=== PATIENT | female | born 1980 | race Caucasian/White ===

== ENCOUNTER 2023-03-31 12:10 | Outpatient (REF) | payer MEDICAID, SELFPAY ==
--- NOTE | ~2023-03-31 | MM_ITS ---
EXAMINATION: MM SCREENING DIGITAL BREAST TOMOSYNTHESIS, BILATERAL CLINICAL INFORMATION: Screening. Asymptomatic. COMPARISON: Mammography: There are no prior mammograms available for comparison. TECHNIQUE: Digital breast tomosynthesis is performed in both the craniocaudal and mediolateral oblique views along with computer-aided detection (CAD). Synthesized 2D images are generated from the tomosynthesis. FINDINGS: There are scattered areas of fibroglandular density (ACR BI-RADS breast composition Category b). There are no significant masses, abnormal calcifications, or other abnormalities. MM/MM tomosynthesis screening BI IMPRESSION: No mammographic evidence of malignancy. ASSESSMENT: BI-RADS BI-RADS 1 - Negative RECOMMENDATION: Routine annual mammography screening. 1 year F/U This examination should not preclude the clinical evaluation of a suspicious palpable abnormality. This patient's information was entered into a reminder system with a target due date for their next mammogram.
== END 2023-03-31 12:11 | disposition home or self-care (01) ==
LOC: HO.MAMMO 12:10
PROVIDERS: PCP Registered Nurse; Visit Provider Registered Nurse
DX: Z12.31 Encounter for screening mammogram for malignant neoplasm of breast (principal)
CPT/HCPCS: 77063; 77067

== ENCOUNTER → 2023-03-31 12:15 | Outpatient (BNV) | payer MEDICAID, SELFPAY | PROVIDERS: PCP Registered Nurse; Visit Provider Radiology Diagnostic Radiology | DX: Z12.31 Encounter for screening mammogram for malignant neoplasm of breast (principal) | CPT/HCPCS: 77063; 77067 ==

== ENCOUNTER 2023-04-12 14:18 | Outpatient (REF) | payer MEDICAID, SELFPAY ==
[2023-04-12 16:30] LABS: Estimated Average Glucose 111 mg/dL; Hemoglobin A1c % 5.5 % (<6.0)
[2023-04-12 16:38] LABS: Alanine Aminotransferase 21 U/L (0-31); Alkaline Phosphatase 88 U/L (39-117); Anion Gap 13 (12-20); Aspartate Amino Transferase 14 U/L (5-31); Bilirubin Total 0.2 mg/dL (0.0-1.0); Blood Urea Nitrogen 28 mg/dL (9-16); Calcium 10.9 mg/dL (8.4-10.2); Carbon Dioxide 24 mmol/L (22-29); Chloride 106 mmol/L (96-108); Estimated Glomerular Filt Rate 43; Glucose Random 91 mg/dL (60-115); Potassium 4.6 mmol/L (3.3-5.1); Sodium 138 mmol/L (135-145); Total Protein 7.3 g/dL (6.5-8.0)
[2023-04-13 12:57] LABS: HBS Num1 35.34 mIU/mL (0-7.99); HBsAGNum1 0.27 S/CO (0.00-0.99); Hepatitis A Antibody IgM 0.29 Index (0-0.79); Hepatitis B Core Antibody Nonreactive (Nonreactive); Hepatitis B Surface Antigen Negative (Negative); ~HepC Num1 0.12 S/CO (0.00-0.79); ~Hepatitis A Antibody IgM Nonreactive (Nonreactive); ~Hepatitis B Surface Antibody REACTIVE (Nonreactive); ~Hepatitis C Antibody Nonreactive (Nonreactive)
== END 2023-04-12 14:19 | disposition home or self-care (01) ==
LOC: HO.HHCL 14:18
PROVIDERS: Visit Provider Registered Nurse
DX: Z00.00 Encounter for general adult medical examination without abnormal findings (principal); R73.03 Prediabetes; E28.2 Polycystic ovarian syndrome
CPT/HCPCS: 36415; 80053; 83036; 86704; 86706; 86709; 86803; 87340

== ENCOUNTER 2023-04-20 14:58 | Outpatient (REF) | payer MEDICAID, SELFPAY ==
[2023-04-20 16:53] LABS: Phosphorus 2.3 mg/dL (2.7-4.5)
[2023-04-20 16:56] LABS: Parathyroid Hormone Intact 234.4 pg/mL (8.7-77.1)
[2023-04-20 17:10] LABS: Vitamin D 25-OH Total 36.6 ng/mL (>30)
== END 2023-04-20 14:59 | disposition home or self-care (01) ==
LOC: HO.HHCL 14:58
PROVIDERS: Visit Provider Registered Nurse
DX: E83.52 Hypercalcemia (principal)
CPT/HCPCS: 36415; 82306; 83970; 84100

== ENCOUNTER 2024-01-04 12:36 | Outpatient (REF) | payer MEDICAID, SELFPAY ==
[2024-01-04 13:29] LABS: Appearance Urine Clear; Color Urine Yellow; Glucose Urine UA Negative (Negative); Leukocyte Esterase Urine Negative (Negative); Nitrite Urine Negative (Negative); PH 6.5 (5.0-9.0); Specific Gravity - Urine 1.015 (1.005-1.025); UMIC TRIGGER UA YES; Urine Blood Trace (Negative); Urine Ketones Negative (Negative); Urine Protein 30 (1+) mg/dL (Neg-Trace)
[2024-01-04 13:31] LABS: MANUAL DIFF FLAG NO
[2024-01-04 13:34] LABS: Basophils Percent Auto 0.4 % (0-2); Eosinophils Absolute Auto 0.3 X10*3/uL (0.0-0.4); Eosinophils Percent Auto 3.3 % (0-4); Hematocrit 43.9 % (37.0-47.0); Hemoglobin 14.6 g/dl (12.0-16.0); Imm Gran Abs Auto 0.04 X10*3/uL (0.00-0.03); Imm Gran Pct Auto 0.4 % (0.0-0.4); Lymphocytes Absolute Auto 1.7 X10*3/uL (1.2-4.9); Lymphocytes Percent Auto 16.7 % (20-40); Mean Corpuscular HGB Conc 33.3 g/dl (31.0-35.0); Mean Corpuscular Hemoglobin 27.7 pg (27.0-33.0); Mean Corpuscular Volume 83.1 fL (80.0-98.0); Mean Platelet Volume 10.2 fL (9.4-12.3); Monocytes Absolute Auto 0.7 X10*3/uL (0.1-1.2); Monocytes Percent Auto 6.9 % (2-11); Neutrophils Absolute Auto 7.4 x10*3/uL (2.0-8.3); Neutrophils Percent Auto 72.3 % (45-73); Platelet Count 271 X10*3/uL (160-400); Red Blood Count 5.28 X10*6/uL (4.20-5.50); Red Cell Distribution Width 13.5 % (11.0-16.0); White Blood Count 10.2 X10*3/uL (4.8-10.8)
[2024-01-04 13:36] LABS: Bacteria Urine Trace (None Seen); Hyaline Casts Urine 0-2 /LPF (0-2); WBC Urine 0-5 /HPF (0-5)
[2024-01-04 14:06] LABS: Creatinine Urine 103.47 mg/dL; Protein/Creatinine Ratio, Ur 0.36 (<0.2); Total Protein Urine Random 37 mg/dL (<12)
[2024-01-04 14:13] LABS: Parathyroid Hormone Intact 245.9 pg/mL (8.7-77.1)
[2024-01-04 14:20] LABS: Alanine Aminotransferase 34 U/L (0-31); Albumin Level 4.1 g/dL (3.5-5.0); Alkaline Phosphatase 87 U/L (39-117); Anion Gap 11 (12-20); Aspartate Amino Transferase 16 U/L (5-31); Bilirubin Total 0.3 mg/dL (0.0-1.0); Blood Urea Nitrogen 24 mg/dL (9-16); Calcium 11.2 mg/dL (8.4-10.2); Carbon Dioxide 24 mmol/L (22-29); Chloride 107 mmol/L (96-108); Estimated Glomerular Filt Rate 45; Glucose Random 122 mg/dL (60-115); Potassium 4.6 mmol/L (3.3-5.1); Sodium 137 mmol/L (135-145); Total Protein 7.3 g/dL (6.5-8.0)
[2024-01-04 14:28] LABS: Vitamin D 25-OH Total 40.7 ng/mL (>30)
[2024-01-04 14:37] LABS: Uric Acid 9.1 mg/dL (2.4-5.7)
== END 2024-01-04 12:37 | disposition home or self-care (01) ==
LOC: HO.HHCL 12:36
PROVIDERS: Visit Provider Internal Medicine Nephrology
DX: Z13.89 Encounter for screening for other disorder (principal)
CPT/HCPCS: 36415; 80053; 81001; 82306; 82570; 83735; 83970; 84100; 84156; 84550; 85025

== ENCOUNTER 2024-02-14 11:58 | Outpatient (REF) | payer MEDICAID, SELFPAY ==
[2024-02-14 13:44] LABS: Estimated Average Glucose 126 mg/dL; Hemoglobin A1C 151.9536 umol/L; Total Hemoglobin (HGBA1C) 3623.4112 umol/L
[2024-02-14 14:05] LABS: Cholesterol 161 mg/dL (<200); HDL Cholesterol 48 mg/dL (>40); LDL Cholesterol Calculated 99 mg/dL (<100); Triglycerides 72 mg/dL (<150)
== END 2024-02-14 11:59 | disposition home or self-care (01) ==
LOC: HO.HHCL 11:58
PROVIDERS: Visit Provider Registered Nurse
DX: E66.01 Morbid (severe) obesity due to excess calories (principal); Z68.43 Body mass index [BMI] 50.0-59.9, adult
CPT/HCPCS: 36415; 80061; 83036

== ENCOUNTER 2024-03-06 09:51 | Outpatient (REF) | payer MEDICAID, SELFPAY ==
--- NOTE | ~2024-03-06 | XR_ITS ---
EXAMINATION: XR SHOULDER, LEFT CLINICAL INFORMATION: pain over deltoid , pain over deltoid patient states pain for 2 weeks COMPARISON: None available. TECHNIQUE: 5 views of the left shoulder. FINDINGS: Glenohumeral and acromioclavicular alignment maintained. Limited visualization due to body habitus. Joint spaces are preserved. XR/XR shoulder LT min 2V IMPRESSION: Glenohumeral and acromioclavicular alignment maintained. Limited visualization due to body habitus. This study was presented today to March 06, 2024 for interpretation. Stat results provided at this time as requested by referring provider. Electronically signed by: Kelly Quinteros MD 03/06/2024 12:35 PM [facility]
== END 2024-03-06 09:52 | disposition home or self-care (01) ==
LOC: HO.HHCX 09:51
PROVIDERS: Visit Provider Family Medicine
DX: M25.512 Pain in left shoulder (principal)
CPT/HCPCS: 73030

== ENCOUNTER 2024-06-05 11:07 | Outpatient (REF) | payer MEDICAID, SELFPAY ==
[2024-06-05 13:44] LABS: Alanine Aminotransferase 30 U/L (0-31); Alkaline Phosphatase 91 U/L (39-117); Aspartate Amino Transferase 26 U/L (5-31); Bilirubin Direct 0.2 mg/dL (0.0-0.5); Bilirubin Total 0.4 mg/dL (0.0-1.0); Magnesium 1.8 mg/dL (1.6-2.6); Total Protein 7.6 g/dL (6.5-8.0)
[2024-06-05 14:05] LABS: Parathyroid Hormone Intact 196.8 pg/mL (8.7-77.1)
== END 2024-06-05 11:08 | disposition home or self-care (01) ==
LOC: HO.HHCL 11:07
PROVIDERS: Visit Provider Student in an Organized Health Care Education/Training Program
DX: E21.0 Primary hyperparathyroidism (principal)
CPT/HCPCS: 36415; 80076; 82330; 83735; 83970

== ENCOUNTER 2024-09-20 13:31 | Outpatient (REF) | payer MEDICAID, SELFPAY ==
--- OUTSIDE RECORDS SUMMARY | 2024-09-20 14:08 | XMS_ITS | Clinical Summary ---
Author Organization [employer] Address [address] [facility] [address] [place] [address] Care Team Providers Care Butter Liquefier Name Role Phone [facility] Primary Care Provider [phone] Allergies No known active allergies Medications amLODIPine (Norvasc) 2.5 MG tablet 12/08/19 22 Active cholecalciferol (Vitamin D-3) 50 MCG (1999) capsule Take by mouth in the morning. 03/08/20 22 Active lisinopril 40 MG tablet Take 40 mg by mouth in the morning. 03/08/20 22 Active chlorhexidine (Peridex) 0.12 % solution USE 15 ML IN THE MOUTH OR THROAT IF NEEDED FOR WOUND CARE FOR UP TO 14 DAYS *SPIT, DO NOT SWALLOW 473 mL 05/20/19 24 Active triamcinolone (Kenalog) 0.1 % ointmentIndicati ons:Rash and nonspecific skin eruption Apply topically 2 times daily. For 2 weeks 15 g 01/17/20 24 Active albuterol 108 (90 Base) MCG/ACT inhalerIndicatio ns:Mild intermittent reactive airway disease without complication Inhale 2 puffs every 6 (six) hours if needed for wheezing. 18 g 11 01/17/20 24 025 Active Spacer/Aero-Hold Chamber Mask miscIndications: Mild intermittent reactive airway disease without complication Use as directed with inhaler 1 each 01/17/20 24 Active acetaminophen (Tylenol 8 Hour) 650 MG ER tabletIndication s:Acute pain of left shoulder Take 1 tablet (650 mg) by mouth every 8 (eight) hours if needed for mild pain. 30 tablet 1 03/06/20 24 Active Lidocaine 5 % creamIndications :Acute pain of left shoulder Apply topically bid 30 g 3 03/06/20 24 Active Tirzepatide-Weig ht Management (Zepbound) 2.5 MG/0.5ML solution auto-injectorInd ications:Class 3 severe obesity due to excess calories with serious comorbidity and body mass index (BMI) of 50.0 to 59.9 in adult,Pre-diabet es,Metabolic syndrome Inject 0.5 mL (2.5 mg) under the skin 1 (one) time per week. 2 mL 05/30/19 25 026 Active Tirzepatide-Weig ht Management (Zepbound) 5 MG/0.5ML solution auto-injectorInd ications:Class 3 severe obesity due to excess calories with serious comorbidity and body mass index (BMI) of 50.0 to 59.9 in adult Inject 0.5 mL (5 mg) under the skin 1 (one) time per week. 2 mL 06/27/19 25 026 Active Alcohol Swabs (B-D SINGLE USE SWABS REGULAR) padsIndications: Overweight USE 1 PAD ONCE A WEEK 100 each 07/06/19 25 Active cyclobenzaprine (Flexeril) 10 MG tabletIndication s:Acute pain of left shoulder TAKE 1 TABLET AT BEDTIME NEEDED FOR PAIN OF MUSCLES, DO NOT DRIVE WITH MEDICAION 30 tablet 09/05/19 25 Active cyclobenzaprine (Flexeril) 10 MG tabletIndication s:Acute pain of left shoulder TAKE 1 TABLET AT BEDTIME NEEDED FOR PAIN OF MUSCLES, DO NOT DRIVE WITH MEDICAION 30 tablet 08/04/19 25 025 Discontinued Active Problems Problem Noted Date Diagnosed Date Acute pain of left shoulder 03/06/2024 Overview (03/06/2024): Likely musculoskeletal. Will call for ortho referral is symptoms do not improve. - Prescribed acetaminophen (Tylenol 8 Hour) 650 MG ER tablet 03/06/24 - Prescribed cyclobenzaprine (Flexeril) 10 MG tablet 03/06/24 - Prescribed Lidocaine 5 % cream 03/06/24 - Referral to Physical Therapy 03/06/24 - Ordered XR Shoulder 2+ Views Left 03/16/24 - ER precautions discussed. - Seek medical attention for worsening symptoms. Assessment & Plan (03/06/2024 9:51 AM EST): Likely musculoskeletal. Will call for ortho referral is symptoms do not improve. - Prescribed acetaminophen (Tylenol 8 Hour) 650 MG ER tablet 03/06/24 - Prescribed cyclobenzaprine (Flexeril) 10 MG ulfysb12/16/24 - Prescribed Lidocaine 5 % cream 03/06/24 - Referral to Physical Mltpuvq77/16/24 - Ordered XR Shoulder 2+ Views Left 03/16/24 - ER precautions discussed. - Seek medical attention for worsening symptoms. Metabolic syndrome 01/17/2024 Healthcare maintenance 12/07/2023 Overview (01/17/2024): Mammo: 03/2023 Bi-rads 1 Pap: Through Photos I Like critical access hospital records. Sometime in 2022 NO hx of abnormal. C-scope: Routine age 45 BMD: Routine Primary hyperparathyroidism 04/23/2023 Pre-diabetes 02/17/2023 Overview (02/17/2023): A1c 5.7% 07/01/2022. Pt reports + family hx of DM (mom and sister). Has upcoming appointment with [facility] nutrition IUD contraception 09/24/2020 Overweight 09/24/2020 Blood in urine 07/19/2020 Chronic kidney disease, stage 2 (mild) Overview (02/17/2023): Followed by nephrology in [place] monitored q. 6 months Edema 07/19/2020 Proteinuria 07/19/2020 Essential hypertension 09/20/2015 Overview (02/17/2023): Lisinopril 40mg Amlodipine 5mg Maintenance: BMP: Pending Lipid Panel: 06/2022 - Aerobic exercise to reduce BP. Initial goal of 30 min walk 3-5x/week. Increase as tolerated. - low-sodium diet (goal: <2g/day) and heart healthy diet such as DASH to reduce BP and prevent ASCVD. - Home BP monitoring 1-2 x day with goal of <140/90. - Seek immediate medical attention for chest pain, palpitations, SOB, syncope, or sudden changes in mental status. - Do not change or discontinue current prescriptions without first consulting health care provider Assessment & Plan (02/17/2023 3:01 PM EST): Well controlled Continue current regimen Repeat BMP today-mild calcium elevation 06/2022. Likely dehydration. IgA nephropathy 09/20/2015 Irritable bowel syndrome 09/20/2015 PCOS (polycystic ovarian syndrome) 09/20/2015 Overview (02/17/2023): Metformin Assessment & Plan (02/17/2023 3:01 PM EST): - Pt will trial metformin 500mg xr once daily WITH food Vitamin D deficiency 09/20/2015 Encounters Date Type Department Care Team Description 09/18/2024 Patient Outreach [facility] MEDIC[facility] [address] [place] [address] Ceci Arias FNP Pre-visit Planning (SDOH screening completed on 05/29/2024) 2024 Refill [facility] [address] [place] [address] Name, MD Asaf Acute pain of left shoulder 08/24/2024 Telephone [facility] [address] [place] [address] [phone] Krystina Rodriguez rs [facility] 08/07/2024 Telephone [facility] [address] [place] [address] [phone] Krystina Rodriguez RS SRP 08/03/2024 Refill [facility] [address] [place] [address] Ceci Arias FNP Acute pain of left shoulder 07/31/2024 Telephone [facility] [address] [place] [address] Ceci Arias FNP Medication Question 07/28/2024 Patient Outreach [facility] [address] [place] [address] Ceci Arias FNP Pre-visit Planning (SDOH unable to reach LVM ) 07/04/2024 Refill [facility] MED[facility] [address] [place] [address] Ceci Arias FNP Acute pain of left shoulder; Overweight 07/04/2024 Telephone [facility] MEDICINE [address] [place] [address] Ceci Arias DARÍO Prior Authorization ( SHERIF Request: Zesoo) 06/26/2024 11:15 AM EDT Telemedicine [facility] [address] [facility] [place] [address] Ceci Arias DARÍO Class 3 severe obesity due to excess calories with serious comorbidity and body mass index (BMI) of 50.0 to 59.9 in adult (Primary Dx) 06/26/2024 Travel from Last 3 Months Immunizations Immunization Administration Dates Next Due DTP 04/25/1982, 2,02/04/1981,1980 DTaP 06/09/1985,04/25/1982 Hep B, adult 05/30/1996,10/14/1995,09/15/1995 Influenza injectable quadriv alent preservative free 02/17/2023,01/05/2020 Influenza, IIV3, injectable 01/09/2014 Influenza, seasonal, injecta ble, preservative free 01/17/2024 MMR 02/01/1990,01/13/1982 OPV, Trivalent 06/04/1982, 2,02/04/1981,1980 PPD Test 05/11/2017 TD (adult), 2 Lf tetanus tox oid, preservative free, adsorbed 02/17/2023,11/04/1994 Tdap 10/14/2011 Social History Tobacco Use Types Packs/Day Years Used Date Smoking Tobacco: Former Cigarettes Passive Smoke Exposure: Past Smokeless Tobacco: Never Alcohol Use Standard Drinks/Week Comments Never 0 (1 standard drink = 0.6 oz pur e alcohol) Depression Answer Date Recorded Patient Health Questionnaire-9 Score 0 05/29/2024 Patient Health Questionnaire-9 Score 0 05/29/2024 Last PHQ-9: Questionnaire Data Not on file 0 05/29/2024 Housing Stability Answer Date Recorded What is your housing situation today? I have terrie lin 01/06/[address] you li ve. Do you have problems with any of the following? None of the above 01/06/2023 Food Insecurity Answer Date Recorded Within the past 12 months, y ou worried that your food would run out before you got money to buy more: Never True 01/06/2023 Within the past 12 months,th e food you bought just didn't last and you didn't have enough money to get more: Never True Transportation Answer Date Recorded In the past 12 months, has l ack of transportation kept you from medical appts, meetings, work or from getting things needed for daily living? No 01/06/2023 Utilities Answer Date Recorded In the past 12 months, has t he electric, gas, oil or water company threatened to shut off services in your home? No 01/06/2023 Depression Answer Date Recorded Patient Health Questionnaire-2 Score 0 05/29/2024 Internet Access Answer Date Recorded Internet Access Q1 Yes 01/10/2024 Internet Access Q2 Not on file 01/10/2024 Comments Unknown Intention Date Recorded No desire to become (finding) 0 06/26/2024 Sex and Gender Information Value Date Recorded Sex Assigned at Female 01/19/2022 10:15 AM EDT Legal Sex Female 10:15 AM EDT Gender Identity Female 01/19/2022 10:15 AM EDT Sexual Orientation Straight 01/19/2022 10 :15 AM EDT Last Filed Vital Signs Vital Sign Reading Time Taken Comments Blood Pressure 146/84 06/20/2024 10:09 AM EDT Pulse 87 06/20/2024 10:09 AM EDT Temperature 36.3 C (97.4 F) 05/29/2024 10:29 AM EDT Respiratory Rate 20 05/29/2024 10:29 AM EDT Oxygen Saturation 100% 05/29/2024 10:29 AM EDT Inhaled Oxygen Concentration - - Weight 122 kg (269 lb 6.4 oz) 05/29/2024 10:29 A M EDT Height 149.9 cm (4' 11 ) 05/29/2024 10:29 AM EDT Body Mass Index 54.41 05/29/2024 10:29 AM EDT Plan of Treatment Upcoming Encounters Date Type Department Care Team (Late st Contact Info) Description 09/27/2024 10:15 AM EDT Office Visit [facility] [address], [place] [phone] [facility] [address] [place] [address] 11/09/2024 9:00 AM EDT Office Visit [facility] [address] [place] [phone] Krystina Rodriguez [address] [place] [address] [phone] 11/16/2024 9:00 AM EDT Office Visit [facility] [address] [place] [address] [phone] Jennifer, [address] [phone] 12/25/2024 10:00 AM EDT Office Visit [facility] [address] [place] [address] [phone] Jennifer, [address] [phone] Health Maintenance Due Date Last Done Comments Disability Screening 1980 Alcohol/Substance Use Screening 1992 Pneumococcal Vaccine: Pediatrics (0 to 5 Years) and At-Risk Patients (6 to 49) Years (1 of 2 - PCV) 09/05/1999 Dental X-Ray: Full Mouth 02/01/2018 01/31/2015, 11/2007 Dental X-Ray: Bitewings 09/25/2022 09/25/19, 08/21/2016, 12/07/2014, Additional history exists COVID-19 Vaccine ( season) 2023 01/28/2021, 01/07/2021 Influenza Vaccine (#1) 2024 , 02/17/2023, 01/05/2020, Additional history exists Dental Oral Exam 12/21/2024 06/20/2024, 09/2022, 09/24/2021, Additional history exists Dental Prophylaxis 12/21/2024 06/20/2024, 0 09/22/2023, 09/24/2021, Additional history exists Diabetes: Hemoglobin A1C 02/13/2025 024, 04/12/2023, 07/01/2022, Additional history exists Mammogram 03/31/2025 03/31/2023, 03/31/2023 Depression Screening 05/29/2025 05/29/2024, 05/30/19 SDOH Screening 05/29/2025 05/29/2024 Family Planning (PISQ) 06/28/2025 06/28/2024 Tobacco Screening 06/28/2025 06/28/2024 Pap Smear 04/25/2027 04/25/2024 Lipid Panel 02/13/2029 02/14/2024, 06/20, 03/14/2020 Cervical Cancer Screening 04/25/2029 HPV/Cotest 04/25/2029 04/25/2024 Zoster Vaccines (1 of 2) 2030 DTaP/Tdap/Td Vaccines (8 - Td or Tdap) 02/17/2033 02/17/2023, 10/14/2011, 11/04/1994, Additional history exists RSV Patients and Patients Aged 60 years or older (1 - 1-dose 75+ series) 09/05/2055 IPV Vaccines Completed 06/04/1982, 03/23, 02/04/1981, Additional history exists Hepatitis B Vaccines Completed 12/21/2014, 05/30/1996, 10/14/1995, Additional history exists HIV Screening Completed 03/14/2020 Hepatitis C Screening Completed 04/12/2023 HIB Vaccines Aged Out No longer eligi ble based on patient's age to complete this topic HPV Vaccines Aged Out No longer eligi ble based on patient's age to complete this topic Hepatitis A Vaccines Aged Out No long er eligible based on patient's age to complete this topic Meningococcal B Vaccine Aged Out No l onger eligible based on patient's age to complete this topic Meningococcal Vaccine Aged Out No william constantino eligible based on patient's age to complete this topic RSV under 20 months Aged Out No longe r eligible based on patient's age to complete this topic Rotavirus Vaccines Aged Out No longer eligible based on patient's age to complete this topic Procedures Procedure Name Priority Date/Time Associated Diagnosis Comments PROPHYLAXIS - ADULT Routine 06/20/2024 1 0:00 AM EDT PERIODIC ORAL EVALUATION - ESTABLISHED PATIENT Routine 06/20/2024 10:00 AM EDT HM PAP/HPV Routine 04/25/2024 HEMOGLOBIN A1C Routine 02/14/2024 12:00 PM EST Class 3 severe obesity due to excess calories with serious comorbidity and body mass index (BMI) of 50.0 to 59.9 in adult (CMS/HCC) LIPID PANEL, STANDARD Routine 02/14/2024 12:00 PM EST Class 3 severe obesity due to excess calories with serious comorbidity and body mass index (BMI) of 50.0 to 59.9 in adult (CMS/HCC) HEPATITIS PANEL, GENERAL Routine 04/12/2023 2:18 PM EST Healthcare maintenance BI MAMMOGRAM SCREENING TOMOSYNTHESIS BILATERAL Routine 03/31/2023 12:30 PM EST Encounter for screening mammogram for breast cancer BITEWINGS - 4 RADIOGRAPHIC IMAGES Routine 09/24/2021 12:00 AM EDT HIV 1/2 ANTIGEN/ANTIBODY, FOURTH GENERATION W/RFL Routine 03/14/2020 10:40 AM EST PANORAMIC RADIOGRAPHIC IMAGE Routine 01/31/2015 12:00 AM EST from Last 3 Months or Most Recently Relevant to Health Maintenance Results * HM PAP/HPV (04/25/2024) Pap Smear 1. NILM 1. NILM Comment:Completed Ninfa 2024. NIL HPV neg. Repeat 04/2029. HPV Not Detected Undetected, Indeterminat e, Quantitative , Not Detected Comment:Completed Ninfa 2024. NIL HPV neg. Repeat 04/2029. us Historical Provider HEALTH MAINTENANCE Final Result * Hemoglobin A1c (02/14/2024 12:00 PM EST) Hemoglobin A1c 6.0 <6.0 % [facility] Comment:Hemoglobin A1C Refer ence Range Adults: 4.8 - 6.0 % Non diabetic: < 6.0 % Goal: < 7.0 %Additional Action Suggested: > 8.0 %Note: Hemoglobin A1c results are invalid for patients with abnormal amounts of HbF. Blood transfusions may impact the HbA1c concentration in the patient sample. Estimated Average Glucose 126 mg/dL [facility] Comment:eAG = Estimated ave rage glucose which is %A1C expressed asaverage glucose, using the formula of the X7S-HiycymxFxkqtsi Glucose study (ADAG), Diabetes Care, Vol.31,#8,Oct. 2007 Blood Venous blood specimen / Unknown 02/14/2024 12:00 PM EST 02/14/2024 1:10 PM EST [facility] LAB BLOOD ORDERABLES Final Re sult Performing Organization Address City/[facility]/ZIP Co de Phone Number [facility] [address], [place] [phone] * Lipid Panel, Standard (02/14/2024 12:00 PM EST) Triglycerides 72 <150 mg/dL [facility] Comment:Desirable Triglyceri de: less than 150 mg/dLBorderline High Triglyceride 150-199 mg/dLHigh Triglyceride: 200-499 mg/dLVery High Triglyceride: greater than or equal to 5OO mg/dL Cholesterol 161 <200 mg/dL [facility] Comment:Desirable Cholestero l: less than 200 mg/dLBorderline High Cholesterol: 200-239 mg/dLHigh Cholesterol: greater than 239 mg/dL LDL Cholesterol Calculated 99 <100 mg/dL [facility] Comment:Desirable LDL: less than 100 mg/dLNear Optimal/Above Optimal LDL: 110- 129 mg/dLBorderline High LDL: 130-159 mg/dLHigh LDL: 160-189 mg/dLVery High LDL: greater than or equal to 190 mg/dL HDL Cholesterol 48 >40 mg/dL [facility] Comment:Desirable HDL: great er than 40 mg/dL Note: This HDL assay may give artificially low results in patients with liver disease. Blood Venous blood specimen / Unknown 02/14/2024 12:00 PM EST 02/14/2024 1:10 PM EST [facility] LAB BLOOD ORDERABLES Final Re sult [facility] [address] [place] [address] [phone] * Hepatitis A,B,C Profile (04/12/2023 2:18 PM EST) Hepatitis A IgM Nonreactive Nonreactive [facility] Comment:IgM antibodies to ALEMAN V not detected; does not exclude earlyacute or recovered HAV infection. ~Hepatitis B Surface Antibody REACTIVE Nonreactive [facility] Comment:REACTIVE: > 11.99 mI U/mL Hepatitis B Core Antibody Nonreactive Nonreactive [facility] Hepatitis C Antibody Nonreactive Nonreactive [facility] Comment:Antibodies to HCV no t detected; does not exclude early acuteHCV infection. Hepatitis B Surface Ag Negative Negative [facility] Blood Venous blood specimen / Unknown 04/12/2023 2:18 PM EST 04/12/2023 4:13 PM EST Ceci Arias CREDIT OFFICE MANAGER LAB BLOOD ORDERABLES Final Re sult [facility] [address] [place] [address] [phone] * BI Mammogram Screening Tomosynthesis Bilateral (03/31/2023 12:30 PM EST) Anatomical Region Laterality Modality Breast Bilateral Mammography 03/31/2023 12:3 0 PM EST Narrative 04/21/2023 11:15 AM EST [facility] [address] [place] [address] Mammography Report Signed Patient: Princess Redman MR#: [id number] : 1980 Acct:[id number] Age/Sex: 42 / F ADM Date: 03/31/23 Loc: [facility] Attending Dr: Ceci CHANEL Ordering Physician: Ceci Arias Results: 1Nega tive Date of Service: 03/31/23 Follow Up: 1 Year From Orig inal Mammogram Procedure(s): MM tomosynthesis screening BI Accession Number(s): [id number] cc: Hugo,Ceci CREDIT OFFICE MANAGER EXAMINATION: MM SCREENING DIGITAL BREAST TOMOSYNTHESIS, BILATERAL CLINICAL INFORMATION: Screening. Asymptomatic. COMPARISON: Mammography: There are no prior mammograms available for comparison. TECHNIQUE: Digital breast tomosynthesis is performed in both the craniocaudal and mediolateral oblique views along with computer-aided detection (CAD). Synthesized 2D images are generated from the tomosynthesis. FINDINGS: There are scattered areas of fibroglandular density (ACR BI-RADS breast composition Category b). There are no significant masses, abnormal calcifications, or other abnormalities. MM/MM tomosynthesis screening BI IMPRESSION: No mammographic evidence of malignancy. ASSESSMENT: BI-RADS BI-RADS 1 - Negative RECOMMENDATION: Routine annual mammography screening. 1 year F/U This examination should not preclude the clinical evaluation of a suspicious palpable abnormality. This patient's information was entered into a reminder system with a target due date for their next mammogram. Dictated By: Alyssia Cunha MD Signed By: <Electronically signed by Alyssia Cunha MD in OV> 04/21/23 1111 DD/ 1230 TD/TT: Photographic Equipment Inspector: Procedure Note Donotuseinterpreter, Image - 04/21/2023 [facility] [address] [place] [address] Mammography Report Signed Patient: Princess Redman LMR#: [id number] : 1980Acct:[id number] Age/Sex: 42 / FADM Date: 03/31/23 Loc: [facility] Attending Dr: Ceci Arias CREDIT OFFICE MANAGER Ordering Physician: Ceci Arias FNPResults: 1Nega tive Date of Service: 03/31/23Follow Up: 1 Year From Orig inal Mammogram Procedure(s): MM tomosynthesis screening BI Accession Number(s): [id number] cc: Ceci Arias CREDIT OFFICE MANAGER EXAMINATION: MM SCREENING DIGITAL BREAST TOMOSYNTHESIS, BILATERAL CLINICAL INFORMATION: Screening. Asymptomatic. COMPARISON: Mammography: There are no prior mammograms available for comparison. TECHNIQUE: Digital breast tomosynthesis is performed in both the craniocaudal and mediolateral oblique views along with computer-aided detection (CAD). Synthesized 2D images are generated from the tomosynthesis. FINDINGS: There are scattered areas of fibroglandular density (ACR BI-RADS breast composition Category b). There are no significant masses, abnormal calcifications, or other abnormalities. MM/MM tomosynthesis screening BI IMPRESSION: No mammographic evidence of malignancy. ASSESSMENT: BI-RADS BI-RADS 1 - Negative RECOMMENDATION: Routine annual mammography screening. 1 year F/U This examination should not preclude the clinical evaluation of a suspicious palpable abnormality. This patient's information was entered into a reminder system with a target due date for their next mammogram. Dictated By: Alyssia Cunha MD Signed By: <Electronically signed by Alyssia Cunha MD in OV> 04/21/23 1111 DD/ 1230 TD/TT: Photographic Equipment Inspector: [facility] CREDIT OFFICE MANAGER IMG BI PROCEDURES Final Resul t * HIV 1/2 ANTIGEN/ANTIBODY,FOURTH GENERATION W/RFL (03/14/2020 10:40 AM EST) HIV-1/2 ANTIGEN AND ANTIBODIES, 4TH GENERATION W/ REFLEX NON-REACT VERO NON-REACT VERO [facility] Comment: HIV-1 antigen and HIV-1/HIV-2 antibodies were not detected. There is no laboratory evidence of HIV infection. PLEASE NOTE: This information has been disclosed to you from records whose confidentiality may be protected by state law. If your state requires such protection, then the state law prohibits you from making any further disclosure of the information without the specific written consent of the person to whom it pertains, or as otherwise permitted by law. A general authorization for the release of medical or other information is NOT sufficient for this purpose. For additional information please refer to http://education.Hellotravel.SMX/faq/DGI880 (This link is being provided for informational/ educational purposes only.) The performance of this assay has not been clinically validated in patients less than 2 years old. 03/14/2020 10:4 0 AM EST Virgie Hopper NP LAB BLOOD ORDERABLES Final Resul t [facility] [address] from Last 3 Months or Most Recently Relevant to Health Maintenance [place] [facility] ST[place] ADULT Care Teams Butter Liquefier Relationship Specialty Start Date End Date Ceci Arias FNP [address] [place] [phone] PCP - General Family Medicine 11/18/21
--- OUTSIDE RECORDS SUMMARY | 2024-09-20 14:08 | XMS_ITS | Clinical Summary ---
Author Organization [facility] Address [address] [place] [address] Phone Care Team Providers Care Product Strategy Director Name Role Phone Ceci Arias Primary Care Provider [phone] Allergies No known active allergies Medications ascorbic acid (VITAMIN C) 500 MG tablet Take 1 tablet by mouth 1 (one) time each day Active Cholecalciferol 50 MCG (2000 UT) capsule Take 1 capsule by mouth 1 (one) time each day 90 capsule 3 12/31/2021 Active omega-3 (FISH OIL) 1000 MG capsule Take 1 capsule (1,000 mg total) by mouth in the morning and 1 capsule (1,000 mg total) in the evening. 180 capsule 3 01/06/2023 Active lisinopril 40 MG tablet TAKE 1 TABLET BY MOUTH 1 TIME EACH DAY. 90 tablet 3 07/05/2024 Active amLODIPine (NORVASC) 5 MG tablet TAKE 1 TABLET BY MOUTH 1 TIME EACH DAY. 90 tablet 3 07/05/2024 Active Active Problems Problem Noted Date Diagnosed Date IgA nephropathy 04/14/2021 Surveillance of IUD 09/24/2020 Obesity 09/24/2020 Blood in urine 07/19/2020 Chronic kidney disease, stage 2 (mild) Edema 07/19/2020 Essential hypertension 07/19/2020 Proteinuria 07/19/2020 Resolved Problems Problem Noted Date Diagnosed Date Resolved Date Backache 07/19/2020 01/06/2021 Increased blood pressure 07/19/2020 Polycystic ovary syndrome 07/19/2020 Encounters Date Type Department Care Team Description 07/04/2024 Refill [facility] [address] [place] [address] Art English MD from Last 3 Months Immunizations Immunization Administration Dates Next Due PPD Test 05/11/2017 Family History Medical History Relation Comments Cancer Father skin cancer Hypertension Mother Relation Status Comments Father Alive Mother Alive Social History Tobacco Use Types Packs/Day Years Used Date Smoking Tobacco: Never Smokeless Tobacco: Never Alcohol Use Standard Drinks/Week Comments Yes 0 (1 standard drink = 0.6 oz pure alcohol) Alcoholic Drinks/day: Occasional social drink Comments Unknown Sex and Gender Information Value Date Recorded Sex Assigned at Not on file Legal Sex Female 5:08 PM EST Gender Identity Not on file Sexual Orientation Not on file Last Filed Vital Signs Vital Sign Reading Time Taken Comments Blood Pressure 144/94 01/05/2024 9:01 AM EDT Pulse 80 01/05/2024 9:01 AM EDT Temperature - - Respiratory Rate - - Oxygen Saturation 97% 01/05/2024 9:01 AM EDT Inhaled Oxygen Concentration - - Weight 125 kg (275 lb) 01/05/2024 9:01 AM EDT Height 149.9 cm (4' 11 ) 01/05/2024 9:01 AM EDT Body Mass Index 55.54 01/05/2024 9:01 AM EDT Plan of Treatment Upcoming Encounters Date Type Department Care Team (Late st Contact Info) Description 01/04/2025 9:00 AM EDT Office Visit [facility] [address] [place] [address] Art English MD [facility] [place] [address] Health Maintenance Due Date Last Done Comments Pneumococcal Vaccine: Peds ( 0 to 5 Years) and At-Risk Patients (6 to 49 Years) (1 of 2 - PCV) 09/05/1999 Hepatitis B Vaccine Completed 12/21/2014, 05/30/1996, 10/14/1995, Additional history exists Influenza Vaccine Completed 01/17/2024, , 01/05/2020 [place] Care Teams Product Strategy Director Relationship Specialty Start Date End Date Ceci Arias [address] [place] [id number] PCP - General 01/06/23
--- OUTSIDE RECORDS SUMMARY | 2024-09-20 14:08 | XMS_ITS | Clinical Summary ---
Author Organization [facility] Address [address] [place] [address] Phone Care Team Providers Care Patient Care Technician Instructor Name Role Phone Neha Jackson MD Primary Care Provider [phone] Allergies No known active allergies Medications amLODIPine (NORVASC) 2.5 mg tablet Take 2.5 mg by mouth daily. Active ascorbic acid (VITAMIN C) 500 mg tablet Take 1 Tab by mouth daily. 0 Active calcium carbonate-vit D3-min 600 mg-10 mcg (400 unit) tablet Take 1 Tab by mouth 2 times daily (with meals). 9 Active lisinopril (PRINIVIL,ZESTR IL) 40 mg tablet Take 40 mg by mouth daily. 1 Active OMEGA-3 FATTY ACIDS ORAL Take 1 tablet by mouth daily. Active cholecalciferol (VITAMIN D-3) 50 mcg (2,000 unit) capsule TOME IGNACIO CAPSULA [place] 90 capsule 3 5 Active acetaminophen (TYLENOL 8 HOUR) 650 mg 8 hr tablet TAKE 1 TABLET (650 MG) BY MOUTH EVERY 8 (EIGHT) HOURS IF NEEDED FOR MILD PAIN. 4 Active Ventolin HFA 90 mcg/actuation inhaler Inhale 2 puffs by mouth every 6 (six) hours if needed for wheezing. 4 Active cyclobenzaprine (FLEXERIL) 10 mg tablet TAKE 1 TABLET AT BEDTIME NEEDED FOR PAIN OF MUSCLES, DO NOT DRIVE WITH MEDICAION 4 Active Aerochamber Plus Flow-Vu,L Msk spacer USE SEG N LO INDICADO WITH INHALER 4 Active metFORMIN XR (GLUCOPHAGE-XR) 500 mg 24 hr tablet TAKE 1 TABLET (500 MG) BY MOUTH WITH EVENING MEAL. DO NOT CRUSH, CHEW, OR SPLIT. 4 Active lidocaine 5 % cream Apply topically bid 4 Active tirzepatide, weight loss, (Zepbound) 2.5 mg/0.5 mL injection Inject 0.5 mL (2.5 mg total) under the skin. 4 02/28/20 25 Active Alcohol Prep Pads pads, medicated USE 1 PAD ONCE A WEEK 5 Active Active Problems Problem Noted Date Diagnosed Date Acute pain of left shoulder 03/06/2024 Overview (04/25/2024): Likely musculoskeletal. Will call for ortho referral [...] attention for worsening symptoms. Metabolic syndrome 01/17/2024 Primary hyperparathyroidism (CMS/[facility] V24) 2023 Pre-diabetes 02/17/2023 Overview (04/25/2024): ? A1c 5.7% 07/01/2022. Pt reports + family hx of DM (mom and sister). Has upcoming [facility] with [facility] nutrition Chronic kidney disease 05/30/2021 Overview (04/21/2024): Followed by Renal IUD contraception 09/24/2020 Overweight 09/24/2020 Obesity 09/24/2020 Blood in urine 07/19/2020 Edema 07/19/2020 Proteinuria 07/19/2020 IgA nephropathy 09/20/2015 Essential hypertension 09/20/2015 Overview (04/25/2024): Lisinopril 40mg Amlodipine 5mg Maintenance: BMP: Pending [...] prescriptions without first consulting health care provider Irritable bowel syndrome 09/20/2015 PCOS (polycystic ovarian syndrome) 09/20/2015 Overview (04/25/2024): Metformin Vitamin D deficiency 09/20/2015 Encounters Date Type Department Care Team Description 07/31/2024 Telephone Obstetrics & Gynecology - [address] [address] Johanny Boo CNM medicatin review from Last 3 Months Immunizations Name Administration Dates Next Due DTP 04/25/1982, 2,02/04/1981,1980 DTaP (Infanrix) 6wks to less than 7yo 06/09/1985 ,04/25/1982 Hep B, Unspecified 12/21/2014 Hepatitis B (Xpreeta-W-Uyzap , Recombivax HB-Adult) 19yo and older 05/30/1996,10/14/1995,09/15/1995 Influenza Quadrivalent, 0.5m l, preservative free (Fluarix; FluLaval; Fluzone) ages 6mo and older (Afluria) 3yo and older 02/17/2023,01/05/2020 Influenza trivalent, 0.5mL, preservative free (Fluarix; FluLaval; Fluzone) ages 6mo and older (Afluria) 3 years and older 01/17/2024 Influenza trivalent, with preservative (Fluzone; Afluria) 6mo and older 01/09/2014 MMR, measles mumps and rubel la Live (Priorix; M-M-R II) 12mo and older 02/01/1990,01/13/1982 OPV 06/04/1982, 2,02/04/1981,1980 PPD Test 05/11/2017 Td Tetanus diptheria (Tdvax) 7yo and older 02/17/2023,11/04/1994 Tdap Tetanus diptheria acell ular pertussis (Boostrix; Adacel) 7yo and older 10/14/2011 Surgical History Surgery Date Site/Laterality Comments SECTION PROCEDURE: HISTORICAL DELIVERY Medical History Medical History Date Comments Anemia 09/16/2006 DX:Anemia; COMME NT: H & H 10.8 / 34.9 Essential hypertension DX:Essent ial hypertension Right ovarian cyst 03/26/2016 DX:Right ovar albertina cyst; COMMENT: 4 cm right ovarian cyst Vitamin D insufficiency 12/22/2013 DX:Vitam in D insufficiency; COMMENT: Vitamin D = 22 Elevated TSH 09/18/2011 DX:Elevated TSH; COMMENT: TSH = 4.56 Blood type, Rh negative 09/30/2015 DX:Blood type, Rh negative; COMMENT: A negative Kidney stones DX:Kidney stones Bacterial vaginosis 11/11/2015 DX:Bacterial vaginosis Hemorrhoids 05/17/2009 DX:Hemorrhoids Chronic kidney disease 05/30/2021 DX:Chroni c kidney disease Family History Medical History Relation Name Comments No Known Problems Brother Arthritis Father Other: skin cancer Father Hypertension Mother Diabetes Sister Hypertension Sister Breast cancer Neg Hx reports she young s in-laws wtih br ca Ovarian cancer Neg Hx Uterine cancer Neg Hx reports she h as in-laws with uterine ca Relation Name Status Comments Brother Alive Father Alive Mother Alive Sister Alive Social History Tobacco Use Types Packs/Day Years Used Date Smoking Tobacco: Never Smokeless Tobacco: Never Alcohol Use Standard Drinks/Week Comments Yes 0 (1 standard drink = 0.6 oz pur e alcohol) Comments No Sex and Gender Information Value Date Recorded Sex Assigned at Female 05/01/2024 11:55 AM EST Legal Sex Female 3:59 AM EST Gender Identity Female 05/01/2024 11:55 AM EST Sexual Orientation Choose not to disclose 2024 11:55 AM EST 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 Not on file Not on file Obstetrics History Para Term AB IAB SAB Ectopic Multiple Livin g Live Births 3 3 3 3 3 Date Outcome GA Total Labor Labor/2nd/3rd Weight Sex Type Anes PTL Melinda A1 A5 Name Clin 2007 Term 40w 6d 3572 g (126 oz) F CS-LT ranv Spinal N Livin g [address] Sanchez Complications:Failure to Pro earl in Second Stage Delivery Location:[facility] 2009 Term 39w 0d 4026 g (142 oz) M CS-LT ranv Spinal N Livin g [address] Dr Sanchez Complications:None Delivery Location:[facility] 2015 Term 39w 0d 3345 g (118 oz) M CS-Un spec Spinal N Livin g [address] Jimmy galindo Complications:Oligohydramnio s Delivery Location:[facility] Last Filed Vital Signs Vital Sign Reading Time Taken Comments Blood Pressure 124/89 04/25/2024 9:39 AM EST Pulse 86 04/25/2024 9:39 AM EST Temperature - - Respiratory Rate - - Oxygen Saturation - - Inhaled Oxygen Concentration - - Weight 122 kg (270 lb) 04/25/2024 9:39 AM EST Height 149.9 cm (4' 11 ) 04/25/2024 9:39 AM EST Body Mass Index 54.53 04/25/2024 9:39 AM EST Plan of Treatment Upcoming Encounters Date Type Department Care Team (Late st Contact Info) Description 09/20/2024 2:45 PM EDT Procedure visit Obstetrics & Gynecology - [facility] [address] [place] [phone] Luz Maria Serenity, CNM [address] [place] [address] 09/21/2024 11:15 AM EDT Office Visit Bariatric Surgery - [place] [address] [phone] Bimal Toledo MD [address] [address] Health Maintenance Due Date Last Done Comments COVID-19 Vaccine (#1) 1985 Pneumococcal Vaccine: Pediatrics (0 to 5 Years) and At-Risk Patients (6 to 64 Years) (1 of 2 - PCV) 09/05/1999 Social Influencers of Health Screening 02/28/2022 Influenza Vaccine (#1) 2024 , 02/17/2023, 01/05/2020, Additional history exists Hypertension/CHF/CAD Annual BMP Blood Test 01/03/2025 01/04/2024, 01/04/2024, 08/23/2020 Breast Cancer Screening 03/31/2025 03/31/2023 Depression Screening 05/29/2025 05/29/2024 Cholesterol Screening (Lipid Panel) 02/13/2029 02/14/2024, 08/23/2020 Cervical Cancer Screening: HPV 04/25/2029 04/25/2024, 08/23/2020 DTaP,Tdap,and Td Vaccines (9 - Td or Tdap) 02/17/2033 02/17/2023, 10/14/2011, 11/04/1994, Additional history exists IPV Vaccines Completed 06/04/1982, 03/23, 02/04/1981, Additional history exists MMR Vaccines Completed 02/01/1990, 01/13/1982 Hepatitis B Vaccines Completed 12/21/2014, 05/30/1996, 10/14/1995, Additional history exists HIV Screening Completed 08/23/2020, 03/14/2020 Hepatitis C Screening Completed 08/23/2020 HIB Vaccines Aged Out No longer eligi ble based on patient's age to complete this topic HPV Vaccines Aged Out No longer eligi ble based on patient's age to complete this topic Hepatitis A Vaccines Aged Out No long er eligible based on patient's age to complete this topic Meningococcal ACWY Vaccine Aged Out N o longer eligible based on patient's age to complete this topic Meningococcal B Vaccine Aged Out No l onger eligible based on patient's age to complete this topic RSV Immunization Patients Under 20 months Aged Out No longer eligible based on patient's age to complete this topic Varicella Vaccines Aged Out No longer eligible based on patient's age to complete this topic Procedures Procedure Name Priority Date/Time Associated Diagnosis Comments HPV WITH REFLEX GENOTYPE Routine 04/25/2024 10:14 AM EST Encounter for well woman exam with routine gynecological exam Screening for cervical cancer MG MAMMO DIGITAL DIAGNOSTIC BILAT Routine 03/31/2023 11:12 AM EST HEPATITIS C SCREENING Routine 08/23/2020 HIV SCREENING Routine 08/23/2020 ANNUAL BMP BLOOD TEST Routine 08/23/2020 LIPID PANEL Routine 08/23/2020 from Last 3 Months or Most Recently Relevant to Health Maintenance Results * HPV with reflex genotype (04/25/2024 10:14 AM EST) [facility] HPV Negative Negative LAB MICROBIOLOGY METHOD 04/27/2024 2:40 PM EST [facility] Brushing/Spatula Cervix uteri structure / Unknown 04/25/2024 10:14 AM EST 04/26/2024 5:54 AM EST Serenity Loera CNM LAB MOLECULAR DIAGNOSTICS ORD ERABLES Final Result [facility] [address] [place] [address], * MG Mammo Digital Diagnostic bilat (03/31/2023 11:12 AM EST) Anatomical Region Laterality Modality Breast Bilateral Mammography Historical Provider IMG BI PROCEDURES Final R esult * Annual BMP Blood Test (08/23/2020) Pathologist [facility] Annual BMP Blood Test abstracted Historical Provider HEALTH MAINTENANCE Final Result * HIV Screening (08/23/2020) [facility] HIV Screening abstracted Historical Provider HEALTH MAINTENANCE Final Result * Hepatitis C Screening (08/23/2020) Pathologist [facility] Hepatitis C Screening abstracted Historical Provider HEALTH MAINTENANCE Final Result * (ABNORMAL) Lipid panel (08/23/2020) LDL/HDL Ratio 3 0 - 4 Triglycerides 67 0 - 150 mg/dL Cholesterol 190 0 - 200 mg/dL HDL 68 >=40 mg/dL LDL Cholesterol 109(A) 0 - 100 mg/dL Blood Venous blood specimen / Unknown us Historical Provider LAB BLOOD ORDERABLES Mary l Result from Last 3 Months or Most Recently Relevant to Health Maintenance Insurance MEDICAID - [place] Care Teams Patient Care Technician Instructor Relationship Specialty Start Date End Date Neha Jackson MD [address] [place] [id number] PCP - General Internal Medicine 07/31/16
[2024-09-20 16:26] LABS: Hemoglobin A1C 126.5559 umol/L; Total Hemoglobin (HGBA1C) 3748.7781 umol/L
== END 2024-09-20 13:32 | disposition home or self-care (01) ==
LOC: HO.HHCL 13:31
PROVIDERS: PCP Registered Nurse; Visit Provider Registered Nurse
DX: E66.813 Obesity, class 3 (principal); Z68.43 Body mass index [BMI] 50.0-59.9, adult; E66.01 Morbid (severe) obesity due to excess calories
CPT/HCPCS: 36415; 83036

== ENCOUNTER 2025-01-05 11:02 | Outpatient (REF) | payer MEDICAID, SELFPAY ==
[2025-01-05 13:12] LABS: Appearance Urine Clear; Glucose Urine UA Negative (Negative); PH 5.5 (5.0-9.0); Specific Gravity - Urine 1.010 (1.005-1.025); UMIC TRIGGER UA YES
[2025-01-05 13:21] LABS: MANUAL DIFF FLAG NO
--- OUTSIDE RECORDS SUMMARY | 2025-01-05 13:44 | XMS_ITS | Clinical Summary ---
Author Organization [facility] Address [address] [place] [address] Phone Care Team Providers Care Latrine Cleaner Name Role Phone Neha Jackson MD Primary Care Provider [phone] Allergies No known active allergies Medications amLODIPine [...] worsening symptoms. Metabolic syndrome 01/17/2024 Primary hyperparathyroidism (CMS/[facility] V24) 2023 Pre-diabetes 02/17/2023 Overview (04/25/2024): ? A1c 5.7% 07/01/2022. Pt reports + family hx of DM (mom and sister). 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 on file Not [...] to Pro earl in Second Stage Delivery Location:[facility] 2009 Term 39w 0d 4026 g (142 oz) M CS-LT ranv Spinal N Livin g [address] Sanchez Complications:None Delivery Location:[facility] 2015 Term 39w 0d 3345 g (118 oz) M CS-Un spec Spinal N Livin g [address] Jimmy galindo Complications:Oligohydramnio s Delivery Location:[facility] Last Filed Vital Signs Vital Sign [...] Care Team (Late st Contact Info) Description 02/12/2025 8:45 AM EST Procedure visit Obstetrics & Gynecology - [address] [phone] Maya Steiner, [address] [address] Health Maintenance Due Date Last Done Comments COVID-19 Vaccine (#1) 1985 Pneumococcal Vaccine: Pediatrics (0 to 5 Years) and At-Risk Patients (6 to 49 Years) (1 of 2 - PCV) 09/05/1999 HPV Vaccines (1 - 3-dose SCDM series) 09/05/2007 Social Influencers of Health Screening 02/28/2022 Depression Screening 03/22/2024 Influenza Vaccine (#1) 2024 , 02/17/2023, 01/05/2020, Additional history exists Hypertension/CHF/CAD Annual BMP Blood Test 01/03/2025 01/04/2024, 01/04/2024, 08/23/2020 Breast Cancer Screening 03/31/2025 03/31/2023 Cholesterol Screening (Lipid Panel) 02/13/2029 02/14/2024, 08/23/2020 Cervical Cancer Screening: HPV 04/25/2029 04/25/2024, 08/23/2020 DTaP,Tdap,and Td Vaccines (9 - Td or Tdap) 02/17/2033 02/17/2023, 10/14/2011, 11/04/1994, Additional history exists RSV Immunization Adult Patients (1 - 1-dose 75+ series) 09/05/2055 IPV [...] with reflex genotype (04/25/2024 10:14 AM EST) HPV Negative Negative LAB MICROBIOLOGY METHOD 04/27/2024 2:40 PM EST [facility] Brushing/Spatula Cervix uteri structure / Unknown 04/25/2024 10:14 AM EST 04/26/2024 5:54 AM EST Serenity WALKER LAB MOLECULAR DIAGNOSTICS ORD ERABLES Final Result [facility] [address] [place] [address], [place] [phone] * MG Mammo Digital Diagnostic bilat (03/31/2023 11:12 AM EST) Anatomical Region Laterality Modality Breast Bilateral Mammography Result [facility] Provider IMG BI PROCEDURES Final R esult * Annual BMP Blood Test (08/23/2020) [facility] Annual BMP Blood Test abstracted Result [facility] Provider HEALTH MAINTENANCE Final Result * HIV Screening (08/23/2020) [facility] HIV Screening abstracted Result [facility] Provider HEALTH MAINTENANCE Final Result * Hepatitis C Screening (08/23/2020) [facility] Hepatitis C Screening abstracted Result [facility] Provider HEALTH MAINTENANCE Final Result * (ABNORMAL) Lipid panel (08/23/2020) [facility] LDL/HDL Ratio 3 0 - 4 Triglycerides 67 0 - 150 mg/dL Cholesterol 190 0 - 200 mg/dL HDL 68 >=40 mg/dL LDL Cholesterol 109(A) 0 - 100 mg/dL Blood Venous blood specimen / Unknown Result [facility] Provider LAB BLOOD ORDERABLES Mary l Result from Last 3 Months or Most Recently Relevant to Health Maintenance Insurance MEDICAID - [place] Care Teams Latrine Cleaner Relationship Specialty Start Date End Date Neha Jackson MD [address] [place] [address] PCP - General Internal Medicine 07/31/16
[2025-01-05 13:53] LABS: Hematocrit 46.3 % (37.0-47.0); Hemoglobin 15.1 g/dl (12.0-16.0); Imm Gran Abs Auto 0.04 X10*3/uL (0.00-0.03); Imm Gran Pct Auto 0.5 % (0.0-0.4); Lymphocytes Absolute Auto 1.7 X10*3/uL (1.2-4.9); Mean Corpuscular HGB Conc 32.6 g/dl (31.0-35.0); Mean Corpuscular Hemoglobin 27.3 pg (27.0-33.0); Mean Corpuscular Volume 83.7 fL (80.0-98.0); NRBC Abs Auto 0.000 X10*3/uL (0.0-0.012); NRBC Pct Auto 0.0 /100WBC (0.0-0.2); Platelet Count 225 X10*3/uL (160-400); Red Blood Count 5.53 X10*6/uL (4.20-5.50); White Blood Count 8.7 X10*3/uL (4.8-10.8)
[2025-01-05 15:52] LABS: Parathyroid Hormone Intact 225.5 pg/mL (8.7-77.1)
[2025-01-05 15:58] LABS: Alanine Aminotransferase 28 U/L (0-31); Albumin Level 4.2 g/dL (3.5-5.0); Alkaline Phosphatase 103 U/L (39-117); Anion Gap 12 (12-20); Aspartate Amino Transferase 24 U/L (5-31); Blood Urea Nitrogen 13 mg/dL (9-16); Calcium 11.1 mg/dL (8.4-10.2); Carbon Dioxide 24 mmol/L (22-29); Chloride 105 mmol/L (96-108); Estimated Glomerular Filt Rate 60; Magnesium 1.8 mg/dL (1.6-2.6); Potassium 4.1 mmol/L (3.3-5.1); Sodium 137 mmol/L (135-145); Total Protein 7.1 g/dL (6.5-8.0); Uric Acid 7.5 mg/dL (2.4-5.7)
[2025-01-07 14:47] LABS: Protein/Creatinine Ratio, Ur 1.62 (<0.2); Total Protein Urine Random 78 mg/dL (<12)
[2025-01-10 14:17] LABS: VITAMIN D (1,25 OH) D3 52 pg/mL; Vit D (1,25-Dihydroxy) Total 52 pg/mL (18-72); Vitamin D (1,25 OH) D2 <8 pg/mL
== END 2025-01-05 11:03 | disposition home or self-care (01) ==
LOC: HO.HHCL 11:02
PROVIDERS: PCP Registered Nurse; Visit Provider Internal Medicine Nephrology
DX: I12.9 Hypertensive chronic kidney disease with stage 1 through stage 4 chronic kidney disease, or unspecified chronic kidney disease (principal); N18.2 Chronic kidney disease, stage 2 (mild); R80.8 Other proteinuria; R60.9 Edema, unspecified; E66.9 Obesity, unspecified
CPT/HCPCS: 36415; 80053; 81001; 82570; 82652; 83735; 83970; 84100; 84156; 84550; 85025

== ENCOUNTER 2025-01-30 12:16 | Outpatient (REF) | payer MEDICAID, SELFPAY ==
--- OUTSIDE RECORDS SUMMARY | 2025-01-30 14:04 | XMS_ITS | Encounter Summary ---
Author Organization [employer] Address [address] [place] [address] [address] [place] [address] Care Team Providers Care Cattle Knocker Name Role Phone [place] [facility] Primary Care Provider [phone] Reason for Visit * Reason Comments Med Change Request Encounter Details Date Type Department Care Team ([facility] Contact Info) Description 07/30/2022 Refill [facility] MEDICINE [address] [place], [place] [phone] [facility] [address] [place] [address] Prediabetes; Class 3 severe obesity due to excess calories with serious comorbidity and body mass index (BMI) of 45.0 to 49.9 in adult (CMS/[facility]) Social History Tobacco Use Types Packs/Day Years Used Date Smoking Tobacco: Never Passive Smoke Exposure: Never Smokeless Tobacco: Never Alcohol Use Standard Drinks/Week Comments Never 0 (1 standard drink = 0.6 oz pur e alcohol) Comments Unknown Sex and Gender Information Value Date Recorded Sex Assigned at Female 01/19/2022 10:15 AM EDT Legal Sex Female 10:15 AM EDT Gender Identity Female 01/19/2022 10:15 AM EDT Sexual Orientation Straight 01/19/2022 10 :15 AM EDT COVID-19 Exposure Response Date Recorded In the last 10 days, have yo u been in contact with someone who was confirmed or suspected to have Coronavirus/COVID-19? No / Unsure 07/21/2022 8:57 AM EDT documented as of this encounter Plan of Treatment Upcoming Encounters Date Type Department Care Team (Late Contact Info) Description 01/31/2025 10:15 AM EST Office Visit [facility] [address] [place] [address] Ceci Arias FNP [address] [place] [address] documented as of this encounter Visit Diagnoses Diagnosis Prediabetes Other abnormal glucose Class 3 severe obesity due to excess calories with serious comorbidity and body mass index (BMI) of 45.0 to 49.9 in adult (HCC) documented in this encounter Care Teams Cattle Knocker Relationship Specialty Start Date End Date Ceci Arias FNP [address] [place] [address] PCP - General Family Medicine 11/18/21 documented as of this encounter
--- OUTSIDE RECORDS SUMMARY | 2025-01-30 14:04 | XMS_ITS | Encounter Summary ---
Author Organization [employer] Address [address] [facility] [address] [place] [address] Care Team Providers Care Pediatric Pathologist Name Role Phone [place] [facility] Primary Care Provider [phone] Reason for Visit * Reason Onset Date Comments analy ROB 08/24/2024 Encounter Details Date Type Department Care Team ([facility] st Contact Info) Description 08/24/2024 Telephone [facility] [address] [place], [place] [phone] Krystina Rodriguez [address] [place], [place] [phone] rs SRP Social History Tobacco Use Types Packs/Day Years [...] Q2 Not on file 01/10/2024 Comments Unknown Sex and Gender Information Value Date Recorded Sex Assigned at Female 01/19/2022 10:15 AM EDT Legal Sex Female 10:15 AM EDT Gender Identity Female 01/19/2022 10:15 AM EDT Sexual Orientation Straight 01/19/2022 10 :15 AM EDT documented as of this encounter Miscellaneous Notes * Telephone Encounter - Sally Murray - 08/24/2024 11:46 AM EDT Patient missed SPR appt yesterday 08/23. She is looking to . SRP slots are blocked off for [facility]. Please reach out to patient for rescheduling. documented in this encounter Plan of Treatment Upcoming Encounters Date Type Department Care Team (Late st Contact Info) Description 01/31/2025 10:15 AM EST Office Visit [facility] MED[facility]INE [address] [place] [address] Ceci Arias FNP [address] [place] [address] documented as of this encounter Visit Diagnoses Not on filedocumented in this encounter Additional Health Concerns Assessment Noted Time PHQ-9 Depression Total Score: 0 05/30/19 25 10:30 AM EDT documented as of this encounter Care Teams Pediatric Pathologist Relationship Specialty Start Date End Date Ceci Arias FNP [address] [place] [address] PCP - General Family Medicine 11/18/21 documented as of this encounter
--- OUTSIDE RECORDS SUMMARY | 2025-01-30 14:04 | XMS_ITS | Encounter Summary ---
Author Organization [facility] [employer] [facility] Address [address] [place] [address] Care Team Providers Care Horseradish Grinder Name Role Phone Ceci Arias [facility] Primary Care Provider [phone] Encounter Details Date Type Department Care Team (Latest Contact Info) Description 09/24/2021 Abstract [facility] CONVERSIONS Dental, Provider, DDS Social History Tobacco Use Types Packs/Day Years Used Date Smoking Tobacco: Never Assessed Comments Unknown Sex and Gender Information Value [...] Description 01/31/2025 10:15 AM EST Office Visit [facility] MEDICINE [address] [place] [address] Ceci Arias FNP [address] [place] [address] documented as of this encounter Visit Diagnoses Not on filedocumented in this encounter Care Teams Horseradish Grinder Relationship Specialty Start Date End Date Ceci Arias FNP [address] [place] [address] PCP - General Family Medicine 11/18/21 documented as of this encounter
--- OUTSIDE RECORDS SUMMARY | 2025-01-30 14:04 | XMS_ITS | Encounter Summary ---
Author Organization [employer] Address 75 [facility] 7 [place] [address] Care Team Providers Care Head Filter Tank Tender Helper Name Role Phone [facility] Primary Care Provider [phone] Reason for Visit * Reason Onset Date Comments chart prep 01/30/2025 Encounter Details Date Type Department Care Team ([facility] st Contact Info) Description 01/30/2025 Telephone [facility] [address] [place], [place] [phone] [facility] [address] [place] [address] chart prep Social History Tobacco Use Types Packs/Day Years [...] encounter Miscellaneous Notes * Telephone Encounter - Teena Baer MA - 01/30/2025 1:08 PM EST Chart Prep Labs: done Images: done Referrals: complete Vaccines due: Covid, Flu, and HPV Screenings: mammogram Overdue care gaps: PHQ-9 and YASMIN-7 documented in this encounter Plan of Treatment Upcoming Encounters Date Type Department Care Team (Late st Contact Info) Description 01/31/2025 10:15 AM EST Office Visit [facility] [address] [place] [address] Ceci Arias FNP [address] [place] [address] documented as of this encounter Visit Diagnoses Not on filedocumented in this encounter Additional Health Concerns Assessment Noted Time PHQ-9 Depression Total Score: 0 05/30/19 25 10:30 AM EDT documented as of this encounter Care Teams Head Filter Tank Tender Helper Relationship Specialty Start Date End Date Ceci Arias FNP [address] [place] [address] PCP - General Family Medicine 11/18/21 documented as of this encounter
--- OUTSIDE RECORDS SUMMARY | 2025-01-30 14:04 | XMS_ITS | Encounter Summary ---
Author Organization [employer] Address 75 [facility] 7t [place] [address] Care Team Providers Care Board Liner Operator Name Role Phone [facility] Primary Care Provider [phone] Reason for Visit * Reason Comments Med Refill Encounter Details Date Type Department Care Team ([facility] st Contact Info) Description 06/07/2024 Refill [facility] [address] [place], [place] [phone] [facility] [address] [place], [place] [phone] PCOS (polycystic ovarian syndrome) Social History Tobacco Use Types Packs/Day Years [...] Description 01/31/2025 10:15 AM EST Office Visit [facility] 230 [place] [address] Ceci Arias FNP [address] [place] [address] documented as of this encounter Visit Diagnoses Diagnosis PCOS (polycystic ovarian syndrome) Polycystic ovaries documented in this encounter Additional Health Concerns Assessment Noted Time PHQ-9 Depression Total Score: 0 05/30/19 25 10:30 AM EDT documented as of this encounter Care Teams Board Liner Operator Relationship Specialty Start Date End Date Ceci Arias FNP [address] [place] [address] PCP - General Family Medicine 11/18/21 documented as of this encounter
--- OUTSIDE RECORDS SUMMARY | 2025-01-30 14:04 | XMS_ITS | Encounter Summary ---
Author Organization [employer] Address 75 [facility] 7t [place] [address] Care Team Providers Care Wafer Polisher Name Role Phone [facility] Primary Care Provider Encounter Details Date Type Department Care Team ([facility] st Contact Info) Description 04/22/2023 Orders Only [facility] [address] [place], [place] [phone] [facility] 230 [place] [address] Social History Tobacco Use Types Packs/Day Years Used Date Smoking Tobacco: Never Passive Smoke Exposure: Never Smokeless Tobacco: Never Alcohol Use Standard Drinks/Week Comments Never 0 (1 standard drink = 0.6 oz pur e alcohol) Depression Answer Date Recorded Patient Health Questionnaire-9 Score 0 02/17/2023 Patient Health Questionnaire-9 Score 0 02/17/2023 Last PHQ-9: Questionnaire Data Not on file 1 04/19/2022 Housing Stability Answer Date Recorded What is [...] Date Recorded Patient Health Questionnaire-2 Score 0 02/17/2023 Comments Unknown Sex and Gender Information Value [...] Description 01/31/2025 10:15 AM EST Office Visit [facility] [address] [place] [address] Ceci Arias FNP [address] [place] [address] documented as of this encounter Visit Diagnoses Not on filedocumented in this encounter Additional Health Concerns Assessment Noted Time PHQ-9 Depression Total Score: 0 02/18/20 23 2:10 PM EST documented as of this encounter Care Teams Wafer Polisher Relationship Specialty Start Date End Date Ceci Arias FNP [address] [place] [address] PCP - General Family Medicine 11/18/21 documented as of this encounter
--- OUTSIDE RECORDS SUMMARY | 2025-01-30 14:04 | XMS_ITS | Encounter Summary ---
Author Organization [employer] Address 75 [facility] 7t [place] [address] Care Team Providers Care Basic Sciences Dean Name Role Phone [facility] Primary Care Provider [phone] Reason for Visit * Reason Comments Med Refill Encounter Details Date Type Department Care Team ([facility] st Contact Info) Description 03/19/2024 Refill [facility] 230 [place], [place] [phone] [facility] 230 [place] [address] Mild intermittent reactive airway disease without complication Social History Tobacco Use Types Packs/Day Years Used Date Smoking Tobacco: Former Cigarettes Passive Smoke Exposure: Past Smokeless Tobacco: Never Alcohol Use Standard Drinks/Week Comments Never 0 (1 standard drink = 0.6 oz pur e alcohol) Depression Answer Date Recorded Patient Health Questionnaire-9 Score 0 02/28/2024 Patient Health Questionnaire-9 Score 0 02/28/2024 Last PHQ-9: Questionnaire Data Not on file 1 04/30/2023 Housing Stability Answer Date Recorded What is [...] Date Recorded Patient Health Questionnaire-2 Score 0 02/28/2024 Internet Access Answer Date Recorded Internet Access [...] Description 01/31/2025 10:15 AM EST Office Visit [facility] 230 [place] [address] Ceci Arias FNP [address] [place] [address] documented as of this encounter Visit Diagnoses Diagnosis Mild intermittent reactive airway disease without complication documented in this encounter Additional Health Concerns Assessment Noted Time PHQ-9 Depression Total Score: 0 02/28/20 24 10:44 AM EST documented as of this encounter Care Teams Basic Sciences Dean Relationship Specialty Start Date End Date Ceci Arias FNP [address] [place] [address] PCP - General Family Medicine 11/18/21 documented as of this encounter
--- OUTSIDE RECORDS SUMMARY | 2025-01-30 14:04 | XMS_ITS | Encounter Summary ---
Author Organization [employer] Address 75 [facility] 7t [place] [address] Care Team Providers Care Service Station Attendant Name Role Phone [facility] Primary Care Provider [phone] Reason for Visit * Reason Comments Med Refill Encounter Details Date Type Department Care Team ([facility] st Contact Info) Description 05/24/2024 Refill [facility] [address] [place], [place] [phone] Willis Malone BDS [address] [place], [place] [phone] Social History Tobacco Use Types Packs/Day Years [...] encounter Miscellaneous Notes * Telephone Encounter - Christiano Flores DMD - 05/25/2024 8:01 AM EST Please forward to Dr. Renee documented in this encounter Plan of Treatment Upcoming Encounters Date Type Department Care Team (Late st Contact Info) Description 01/31/2025 10:15 AM EST Office Visit [facility] 230 [place] [address] Ceci Arias FNP 230 [place] [address] documented as of this encounter Visit Diagnoses Not on filedocumented in this encounter Additional Health Concerns Assessment Noted Time PHQ-9 Depression Total Score: 0 02/28/20 24 10:44 AM EST documented as of this encounter Care Teams Service Station Attendant Relationship Specialty Start Date End Date Ceci Arias FNP 230 [place] [address] PCP - General Family Medicine 11/18/21 documented as of this encounter
--- OUTSIDE RECORDS SUMMARY | 2025-01-30 14:04 | XMS_ITS | Encounter Summary ---
Author Organization [employer] Address 75 [facility] 7t [place] [address] Care Team Providers Care Supervisor Throwing Department Name Role Phone [facility] Primary Care Provider [phone] Reason for Visit * Reason Comments Med Refill Encounter Details Date Type Department Care Team ([facility] st Contact Info) Description 05/18/2023 Refill [facility] [address] [place], [place] [phone] Willis Malone BDS [address] [place], [place] [phone] Social History Tobacco Use Types Packs/Day Years [...] Telephone Encounter - Christiano Flores DMD - 05/20/2023 11:40 AM EST Approving, but needs appt for additional refills. documented in this encounter Plan of Treatment Upcoming Encounters Date Type Department Care Team (Late st Contact Info) Description 01/31/2025 10:15 AM EST Office Visit [facility] 230 [place] [address] Ceci Arias FNP [address] [place] [address] documented as of this encounter Visit Diagnoses Not on filedocumented in this encounter Additional Health Concerns Assessment Noted Time PHQ-9 Depression Total Score: 0 02/18/20 23 2:10 PM EST documented as of this encounter Care Teams Supervisor Throwing Department Relationship Specialty Start Date End Date Ceci Arias FNP [address] [place] [address] PCP - General Family Medicine 11/18/21 documented as of this encounter
--- OUTSIDE RECORDS SUMMARY | 2025-01-30 14:04 | XMS_ITS | Encounter Summary ---
Author Organization [employer] Address [address] [place] [address] 7 [place] [address] Care Team Providers Care Textile Screen Maker Name Role Phone [place] [facility] Primary Care Provider [phone] Reason for Visit * Reason Comments Med Change Request Encounter Details Date Type Department Care Team ([facility] st Contact Info) Description 07/31/2022 Refill [facility] 230 [place], [place] [phone] [facility] 230 [place], [place] [phone] Prediabetes; Class 3 severe obesity due to excess calories with serious comorbidity and body mass index (BMI) of 45.0 to 49.9 in adult (CMS/HCC) Social History Tobacco Use Types Packs/Day Years [...] encounter Miscellaneous Notes * Telephone Encounter - Johanny Martins - 08/04/2022 11:25 AM EDT Waiting on providers signature documented in this encounter Plan of Treatment Upcoming Encounters Date Type Department Care Team (Late st Contact Info) Description 01/31/2025 10:15 AM EST Office Visit [facility] [address] [place] [address] Ceci Arias FNP [address] [place] [address] documented as of this encounter Visit Diagnoses Diagnosis Prediabetes Other abnormal glucose Class 3 severe obesity due to excess calories with serious comorbidity and body mass index (BMI) of 45.0 to 49.9 in adult (HCC) documented in this encounter Care Teams Textile Screen Maker Relationship Specialty Start Date End Date Ceci Arias FNP [address] [place] [address] PCP - General Family Medicine 11/18/21 documented as of this encounter
--- OUTSIDE RECORDS SUMMARY | 2025-01-30 14:04 | XMS_ITS | Encounter Summary ---
Author Organization [employer] Address [address] [place] [address] [address] [address] Care Team Providers Care Mosaic Tile Maker Name Role Phone [facility] Primary Care Provider [phone] Encounter Details Date Type Department Care Team (Late st Contact Info) Description 06/10/2022 Orders Only [facility] [address] [place] [address] Nathaly Stafford, RN [address] [place], [place] [phone] Screening for tuberculosis (Primary Dx) Social History Tobacco Use Types Packs/Day Years Used Date Smoking Tobacco: Never Smokeless Tobacco: Never Comments Unknown Sex and Gender Information Value [...] Description 01/31/2025 10:15 AM EST Office Visit [facility] [address] [place] [address] [place] [facility] [address] [place], [place] [phone] documented as of this encounter Procedures Procedure Name Priority Date/Time Associated Diagnosis Comments QUANTIFERON(R)-TB GOLD PLUS, 1 TUBE Routine 07/01/2022 9:39 AM EDT Screening for tuberculosis documented in this encounter Results * QuantiFERON??-TB Gold Plus, 1 Tube (07/01/2022 9:39 AM EDT) Quantiferon -TB Gold Plus, 1 Tube NEGATIVE NEGATIVE [facility] [place] [facility] Comment: Negative test result. M. tuberculosis complex infection unlikely. NIL 0.06 IU/mL [facility] MITOGEN-NIL >10.00 IU/mL [facility] [place] [facility] TB1-NIL <0.00 IU/mL [facility] [place] [facility] TB2-NIL <0.00 IU/mL [facility] [place] [facility] Comment: The Nil tube value reflects the background interferon gamma immune response of the patient's blood sample. This value has been subtracted from the patient's displayed TB and Mitogen results. Lower than expected results with the Mitogen tube prevent false-negative Quantiferon readings by detecting a patient with a potential immune suppressive condition and/or suboptimal pre-analytical specimen handling. The TB1 Antigen tube is coated with the M. tuberculosis-specific antigens designed to elicit responses from TB antigen primed CD4+ helper T-lymphocytes. The TB2 Antigen tube is coated with the M. tuberculosis-specific antigens designed to elicit responses from TB antigen primed CD4+ helper and CD8+ cytotoxic T-lymphocytes. For additional information, please refer to https://education.Directed Edge.Oration/faq/ITB128 (This link is being provided for informational/ educational purposes only.) Blood Venous blood specimen / Unknown 07/01/2022 9:39 AM EDT 07/01/2022 9:39 AM EDT Narrative [facility] - 07/06/2022 11:39 PM EDT FASTING:YES FASTING: YES [facility] REGULATORY LAW SPECIALIST LAB BLOOD ORDERABLES Final Re sult [facility] [address], [place] [address] [facility] [place] [facility] [address] [place] [address] documented in this encounter Visit Diagnoses Diagnosis Screening for tuberculosis- Primary Screening examination for pulmonary tuberculosis documented in this encounter Care Teams Mosaic Tile Maker Relationship Specialty Start Date End Date [facility] DARÍO Ornelas [address] [place] [address] PCP - General Family Medicine 11/18/21 documented as of this encounter
--- OUTSIDE RECORDS SUMMARY | 2025-01-30 14:04 | XMS_ITS | Encounter Summary ---
Author Organization [employer] Address [address] [place] [address] 7 [place] [address] Care Team Providers Care Senior Landscape Architect Name Role Phone [facility] Primary Care Provider [phone] Reason for Visit * Reason Comments Med Change Request Encounter Details Date Type Department Care Team ([facility] Contact Info) Description 07/31/2022 Refill [facility] 230 [place], [place] [phone] [facility] 230 [place] [address] Prediabetes; Class 3 severe obesity due to excess calories with serious comorbidity and body mass index (BMI) of 45.0 to 49.9 in adult (CMS/[facility]) Social History Tobacco Use Types Packs/Day Years [...] [facility] [address] [place] [address] Ceci Arias FNP [address] [place] [address] documented as of this encounter Visit Diagnoses Diagnosis Prediabetes Other abnormal glucose Class 3 severe obesity due to excess calories with serious comorbidity and body mass index (BMI) of 45.0 to 49.9 in adult (HCC) documented in this encounter Care Teams Senior Landscape Architect Relationship Specialty Start Date End Date Ceci Arias FNP [address] [place] [address] PCP - General Family Medicine 11/18/21 documented as of this encounter
--- OUTSIDE RECORDS SUMMARY | 2025-01-30 14:04 | XMS_ITS | Clinical Summary ---
Author Organization [facility] Address [address] [place] [address] Phone Care Team Providers Care Manager Enterprise Name Role Phone Neha Jackson MD Primary Care Provider Allergies No known active allergies Medications amLODIPine [...] worsening symptoms. Metabolic syndrome 01/17/2024 Primary hyperparathyroidism (CMS/[facility] V24) 2023 Pre-diabetes 02/17/2023 Overview (04/25/2024): ? A1c 5.7% 07/01/2022. Pt reports + family hx of DM (mom and sister). Has upcoming appointment with [facility] nutrition Chronic kidney disease 05/30/2021 Overview (04/21/2024): [...] ,04/25/1982 Hep B, Unspecified 12/21/2014 Hepatitis B (Pcgclja-X-Zjxvn , Recombivax HB-Adult) 19yo and older 05/30/1996,10/14/1995,09/15/1995 [...] Industry Job Start Date Job End Date [employer] Not on file Not on file Not [...] to Pro earl in Second Stage Delivery Location:[facility] 2009 Term 39w 0d 4026 g (142 oz) M CS-LT ranv Spinal N Livin g [address] Sanchez Complications:None Delivery Location:[facility] 2015 Term 39w 0d 3345 g (118 oz) M CS-Un spec Spinal N Livin g [address] Jimmy galindo Complications:Oligohydramnio s Delivery Location:[facility] Last Filed Vital Signs Vital [...] EST Procedure visit Obstetrics & Gynecology - [address] [id number] Maya Steiner, [address] [address] Health Maintenance Due Date Last Done Comments [...] LAB MICROBIOLOGY METHOD 04/27/2024 2:40 PM EST [facility] Brushing/Spatula Cervix uteri structure / Unknown 04/25/2024 10:14 AM EST 04/26/2024 5:54 AM EST [facility] MOLECULAR DIAGNOSTICS ORD ERABLES Final Result [facility] [address] [place] [address], [place] [phone] * MG Mammo Digital Diagnostic bilat (03/31/2023 11:12 AM EST) Anatomical Region Laterality Modality Breast Bilateral Mammography Result [facility] Provider IMG BI PROCEDURES Final R esult * Annual BMP Blood Test (08/23/2020) [facility] Annual BMP Blood Test abstracted Result [facility] Provider HEALTH MAINTENANCE Final Result * HIV Screening (08/23/2020) [facility] HIV Screening abstracted Result [facility] Provider HEALTH MAINTENANCE Final Result * Hepatitis C Screening (08/23/2020) [facility] Hepatitis C Screening abstracted Result [facility] Provider HEALTH MAINTENANCE Final Result * (ABNORMAL) Lipid panel (08/23/2020) [facility] LDL/HDL Ratio 3 0 - 4 Triglycerides 67 0 - 150 mg/dL Cholesterol 190 0 - 200 mg/dL HDL 68 >=40 mg/dL LDL Cholesterol 109(A) 0 - 100 mg/dL Blood Venous blood specimen / Unknown Result [facility] Provider LAB BLOOD ORDERABLES Mary l Result from Last 3 Months or Most Recently Relevant to Health Maintenance Insurance MEDICAID - [place] Care Teams Manager Enterprise Relationship Specialty Start Date End Date Neha Jackson MD [address] [place] [address] PCP - General Internal Medicine 07/31/16
--- OUTSIDE RECORDS SUMMARY | 2025-01-30 14:04 | XMS_ITS | Clinical Summary ---
Author Organization [employer] Address [address] [facility] [address] [place] [address] Care Team Providers Care Sequins Winder Name Role Phone [place] [facility] Primary Care Provider [phone] Allergies No known active allergies Medications amLODIPine (Norvasc) 2.5 MG tablet 2 Active cholecalciferol (Vitamin D-3) 50 MCG (1999 UT) capsule Take by mouth in the morning. 2 Active lisinopril 40 MG tablet Take 40 mg by mouth in the morning. 2 Active chlorhexidine (Peridex) 0.12 % solution USE 15 ML IN THE MOUTH OR THROAT IF NEEDED FOR WOUND CARE FOR UP TO 14 DAYS *SPIT, DO NOT SWALLOW 473 mL 4 Active triamcinolone (Kenalog) 0.1 % ointmentIndicatio ns:Rash and nonspecific skin eruption Apply topically 2 times daily. For 2 weeks 15 g 4 Active albuterol 108 (90 Base) MCG/ACT inhalerIndication s:Mild intermittent reactive airway disease without complication Inhale 2 puffs every 6 (six) hours if needed for wheezing. 18 g 11 4 Active Spacer/Aero-Hold Chamber Mask miscIndications:M ild intermittent reactive airway disease without complication Use as directed with inhaler 1 each 4 Active acetaminophen (Tylenol 8 Hour) 650 MG ER tabletIndications :Acute pain of left shoulder Take 1 tablet (650 mg) by mouth every 8 (eight) hours if needed for mild pain. 30 tablet 1 4 Active Lidocaine 5 % creamIndications: Acute pain of left shoulder Apply topically bid 30 g 3 4 Active Tirzepatide-Weigh t Management (Zepbound) 2.5 MG/0.5ML solution auto-injectorIndi cations:Class 3 severe obesity due to excess calories with serious comorbidity and body mass index (BMI) of 50.0 to 59.9 in adult ([facility]),Pre-diabete s,Metabolic syndrome Inject 0.5 mL (2.5 mg) under the skin 1 (one) time per week. 2 mL 11 5 05/30/19 26 Active Tirzepatide-Weigh t Management (Zepbound) 5 MG/0.5ML solution auto-injectorIndi cations:Class 3 severe obesity due to excess calories with serious comorbidity and body mass index (BMI) of 50.0 to 59.9 in adult ([facility]) Inject 0.5 mL (5 mg) under the skin 1 (one) time per week. 2 mL 5 06/27/19 26 Active Alcohol Swabs (B-D SINGLE USE SWABS REGULAR) padsIndications:O verweight USE 1 PAD ONCE A WEEK 100 each 11 5 Active Tirzepatide-Weigh t Management (Zepbound) 7.5 MG/0.5ML solution auto-injectorIndi cations:Class 3 severe obesity due to excess calories with serious comorbidity and body mass index (BMI) of 50.0 to 59.9 in adult ([facility]) Inject 0.5 mL (7.5 mg) under the skin 1 (one) time per week. 2 mL 3 5 Active cyclobenzaprine (Flexeril) 10 MG tabletIndications :Acute pain of left shoulder TAKE 1 TABLET AT BEDTIME NEEDED FOR PAIN OF MUSCLES, DO NOT DRIVE WITH MEDICAION 30 tablet 5 Active Tirzepatide-Weigh t Management (Zepbound) 10 MG/0.5ML solution auto-injector Inject 0.5 mL (10 mg) under the skin every 7 (seven) days. 2 mL 5 Active Tirzepatide (Mounjaro) 7.5 MG/0.5ML solution auto-injectorIndi cations:Class 3 severe obesity due to excess calories with serious comorbidity and body mass index (BMI) of 50.0 to 59.9 in adult (HCC) Inject 7.5 mg under the skin 1 (one) time per week. 2 mL 1 5 Active Active Problems Problem Noted Date [...] 03/06/24 - Prescribed cyclobenzaprine (Flexeril) 10 MG /16/24 - Prescribed Lidocaine 5 % cream 03/06/24 - Referral to Physical Xttdjmo07/16/24 - Ordered XR Shoulder 2+ Views Left 03/16/24 - ER precautions discussed. - Seek medical attention for worsening symptoms. Metabolic syndrome 01/17/2024 Healthcare maintenance 12/07/2023 Overview (01/17/2024): Mammo: 03/2023 Bi-rads 1 Pap: Through [facility] records. Sometime in 2022 NO hx of abnormal. C-scope: Routine age 45 BMD: Routine Primary hyperparathyroidism 04/23/2023 Pre-diabetes 02/17/2023 Overview (02/17/2023): A1c 5.7% 07/01/2022. Pt reports + family hx of DM (mom and sister). Has upcoming appointment with [facility] nutrition IUD contraception 09/24/2020 Overweight 09/24/2020 Blood in urine 07/19/2020 Chronic kidney disease, stage 2 (mild) Overview (02/17/2023): Followed by nephrology in [place] monitored q. 6 months Edema 07/19/2020 Proteinuria [...] Encounters Date Type Department Care Team Description 01/30/2025 Telephone [facility] [address] [place] [id number] Ceci Arias FNP chart prep 01/24/[address] [facility] [address] [place] [address] Ceci Arias FNP Pre-visit Planning (LVM) 01/16/2025 9:00 AM EDT Office Visit [facility] [address] [place] [phone] Krystina Rodriguez 01/03/2025 Telephone [facility] [address] [place] [address] Ceci Arias FNP telephone call 01/01/2025 Refill [facility] [address] [place] [address] [facility] Class 3 severe obesity due to excess calories with serious comorbidity and body mass index (BMI) of 50.0 to 59.9 in adult ([facility]) 12/28/2024 Telephone [facility] [address] [place] [address] [place] [address] [facility] Medication Question; Prior Authorization ( PA: Alia) 12/27/2024 Refill [facility] [address] [place], [place] [phone] [place] [facility] 12/02/2024 Refill [facility] [address] [place] [address] [facility] pain of left shoulder 10/31/2024 Refill [facility] [address] [place], [place] [phone] [facility] pain of left shoulder from Last 3 Months Immunizations Immunization Administration Dates Next Due DTP 04/25/1982, 2,02/04/1981,1980 DTaP 06/09/1985,04/25/1982 Hep B, adult 05/30/1996,10/14/1995,09/15/1995 Influenza injectable quadriv alent preservative free 02/17/2023,01/05/2020 Influenza, IIV3, injectable 01/09/2014 Influenza, seasonal, injecta ble, preservative free 01/17/2024 MMR 02/01/1990,01/13/1982 OPV, Trivalent 06/04/1982, 2,02/04/1981,1980 PPD Test 05/11/2017 Pneumococcal Conjugate PCV 20 09/27/2024 TD (adult), 2 Lf tetanus tox oid, [...] Sign Reading Time Taken Comments Blood Pressure 118/78 01/16/2025 9:11 AM EDT Pulse 94 01/16/2025 9:11 AM EDT Temperature 36.9 C (98.4 F) 09/27/2024 10:14 AM EDT Respiratory Rate 18 09/27/2024 10:14 AM EDT Oxygen Saturation 100% 05/29/2024 10:29 AM EDT Inhaled Oxygen Concentration - - Weight 113 kg (250 lb 3.2 oz) 09/27/2024 10:14 A M EDT Height 149.9 cm (4' 11 ) 09/27/2024 10:14 AM EDT Body Mass Index 50.53 09/27/2024 10:14 AM EDT Plan of Treatment Upcoming Encounters Date Type Department Care Team (Late st Contact Info) Description 01/31/2025 10:15 AM EST Office Visit [facility] [address] [place] [address] [facility], [facility] [address] [place] [address] Health Maintenance Due Date Last Done Comments HPV Vaccines (1 - 3-dose series) 09/05/1995 Dental X-Ray: Full Mouth 02/01/2018 01/31/2015, 11/2007 COVID-19 Vaccine ( season) 2024 01/28/2021, 01/07/2021 Influenza Vaccine (#1) 2024 , 02/17/2023, 01/05/2020, Additional history exists Dental Oral Exam 12/21/2024 06/20/2024, 09/2022, 09/24/2021, Additional history exists Mammogram 03/31/2025 03/31/2023, 03/31/2023 Depression Screening 05/29/2025 05/29/2024, 05/30/19 SDOH Screening 05/29/2025 05/29/2024 Family Planning (PISQ) 06/28/2025 06/28/2024 Dental Prophylaxis 07/18/2025 01/16/2025, 0 06/20/2024, 09/22/2023, Additional history exists Alcohol/Substance Use Screening 09/27/2025 09/27/2024 Disability Screening 09/27/2025 09/27/2024 Tobacco Screening 01/16/2026 01/16/2025 Dental X-Ray: Bitewings 01/17/2026 01/17/20 25, 09/24/2021, 08/21/2016, Additional history exists Pap Smear 04/25/2027 04/25/2024 Lipid Panel 02/13/2029 [...] Completed 03/14/2020 Hepatitis C Screening Completed 04/12/2023 Pneumococcal Vaccine: Pediatrics (0 to 5 Years) and At-Risk Patients (6 to 49) Years Completed 09/27/2024 HIB Vaccines Aged Out No longer eligi [...] Procedure Name Priority Date/Time Associated Diagnosis Comments INTRAORAL - PERIAPICAL FIRST RADIOGRAPHIC IMAGE Routine 01/16/2025 9:00 AM EDT INTRAORAL - PERIAPICAL EACH ADDITIONAL RADIOGRAPHIC IMAGE Routine 01/16/2025 9:00 AM EDT BITEWINGS - 4 RADIOGRAPHIC IMAGES Routine 01/16/2025 9:00 AM EDT CASE PRESENTATION, DETAILED AND EXTENSIVE TREATMENT PLANNING Routine 01/16/2025 9:00 AM EDT PROPHYLAXIS - ADULT Routine 01/16/2025 9 :00 AM EDT PERIODIC ORAL EVALUATION - ESTABLISHED PATIENT Routine 06/20/2024 10:00 AM EDT HM PAP/HPV Routine 04/25/2024 LIPID PANEL, STANDARD Routine 02/14/2024 12:00 PM EST Class 3 severe obesity due to excess calories with serious comorbidity and body mass index (BMI) of 50.0 to 59.9 in adult (CMS/HCC) HEPATITIS PANEL, GENERAL Routine 04/12/2023 2:18 PM EST Healthcare maintenance BI MAMMOGRAM SCREENING TOMOSYNTHESIS BILATERAL Routine 03/31/2023 12:30 PM EST Encounter for screening mammogram for breast cancer HIV 1/2 ANTIGEN/ANTIBODY, FOURTH GENERATION W/RFL Routine [...] HPV neg. Repeat 04/2029. us Historical Provider MD HEALTH MAINTENANCE Final Result * Lipid Panel, Standard (02/14/2024 12:00 PM EST) Triglycerides 72 <150 mg/dL [facility] Comment:Desirable Triglyceri de: less than 150 mg/dLBorderline High Triglyceride 150-199 mg/dLHigh Triglyceride: 200-499 mg/dLVery High Triglyceride: greater than or equal to 5OO mg/dL Cholesterol 161 <200 mg/dL [facility] Comment:Desirable Cholestero l: less than 200 mg/dLBorderline High Cholesterol: 200-239 mg/dLHigh Cholesterol: greater than 239 mg/dL LDL Cholesterol Calculated 99 <100 mg/dL [facility] Comment:Desirable LDL: less than 100 mg/dLNear Optimal/Above Optimal LDL: 110- 129 mg/dLBorderline High LDL: 130-159 mg/dLHigh LDL: 160-189 mg/dLVery High LDL: greater than or equal to 190 mg/dL HDL Cholesterol 48 >40 mg/dL [facility] Comment:Desirable HDL: great er than 40 mg/dL Note: This HDL assay may give artificially low results in patients with liver disease. Blood Venous blood specimen / Unknown 02/14/2024 12:00 PM EST 02/14/2024 1:10 PM EST [facility] BLOOD ORDERABLES Final Re sult Performing Organization Address [facility] de Phone Number [facility] [address] [place] [address] [phone] * Hepatitis A,B,C Profile (04/12/2023 2:18 PM EST) Hepatitis A IgM Nonreactive Nonreactive [facility] Comment:IgM antibodies to ALEMAN V not detected; does not exclude earlyacute or recovered HAV infection. ~Hepatitis B Surface Antibody REACTIVE Nonreactive [facility] Comment:REACTIVE: > 11.99 mI U/mL Hepatitis B Core Antibody Nonreactive Nonreactive [facility] Hepatitis C Antibody Nonreactive Nonreactive [facility] Comment:Antibodies to HCV no t detected; does not exclude early acuteHCV infection. Hepatitis B Surface Ag Negative Negative [facility] Blood Venous blood specimen / Unknown 04/12/2023 2:18 PM EST 04/12/2023 4:13 PM EST [facility] BLOOD ORDERABLES Final Re sult Performing Organization Address [facility] de Phone Number [facility] [address] [place] [phone] * BI Mammogram Screening Tomosynthesis Bilateral (03/31/2023 12:30 PM EST) Anatomical Region Laterality Modality Breast Bilateral Mammography 03/31/2023 12:3 0 PM EST Narrative 04/21/2023 11:15 AM EST [facility] [address] [place] [address] Mammography Report Signed Patient: Princess Redman MR#: [id number] : 1980 Acct:[id number] Age/Sex: 42 / F ADM Date: 03/31/23 Loc: [facility] Attending Dr: Ceci CHANEL Ordering Physician: Ceci Arias Results: 1Nega tive Date of Service: 03/31/23 Follow Up: 1 Year From Orig inal Mammogram Procedure(s): MM tomosynthesis screening BI Accession Number(s): [id number] cc: Ceci Arias SCRAP IRON LOADER EXAMINATION: MM SCREENING DIGITAL BREAST TOMOSYNTHESIS, BILATERAL [...] in OV> 04/21/23 1111 DD/ 1230 TD/TT: Home Appliance Technician: Procedure Note Donotuseinterpreter, Image - 04/21/2023 [facility] [address] [place] [address] Mammography Report Signed Patient: Princess Redman LMR#: [id number] : 1980Acct:[id number] Age/Sex: 42 / FADM Date: 03/31/23 Loc: [facility] Attending Dr: Ceci CHANEL Ordering Physician: Ceci Arias FNPResults: 1Nega tive Date of Service: 03/31/23Follow Up: 1 Year From Orig inal Mammogram Procedure(s): MM tomosynthesis screening BI Accession Number(s): [id number] cc: Ceci Arias SCRAP IRON LOADER EXAMINATION: MM SCREENING DIGITAL BREAST TOMOSYNTHESIS, BILATERAL [...] in OV> 04/21/23 1111 DD/ 1230 TD/TT: Home Appliance Technician: [facility] SCRAP IRON LOADER IMG BI PROCEDURES Final Resul t * HIV 1/2 ANTIGEN/ANTIBODY,FOURTH GENERATION W/RFL (03/14/2020 10:40 AM EST) HIV-1/2 ANTIGEN AND ANTIBODIES, 4TH GENERATION W/ REFLEX NON-REACT VERO NON-REACT VERO [facility] Comment: HIV-1 antigen and [...] purpose. For additional information please refer to http://education.[employer]Kai.CoCollage/faq/DRD532 (This link is being provided for informational/ educational purposes only.) The performance of this assay has not been clinically validated in patients less than 2 years old. 03/14/2020 10:4 0 AM EST us Virgie Hopper NP LAB BLOOD ORDERABLES Final Resul t [facility] [address] from Last 3 Months or Most Recently Relevant to Health Maintenance Insurance [id number] MEDICAID STAND ADULT Care Teams Sequins Winder Relationship Specialty Start Date End Date Ceci Arias FNP [address] [place] [phone] PCP - General Family Medicine 11/18/21
== END 2025-01-30 12:17 | disposition home or self-care (01) ==
LOC: HO.MAMMO 12:16
PROVIDERS: PCP Registered Nurse; Visit Provider Registered Nurse
DX: Z12.31 Encounter for screening mammogram for malignant neoplasm of breast (principal)
CPT/HCPCS: 77063; 77067

== ENCOUNTER → 2025-01-30 12:30 | Outpatient (BNV) | payer MEDICAID, SELFPAY | PROVIDERS: PCP Registered Nurse; Visit Provider Internal Medicine | DX: Z12.31 Encounter for screening mammogram for malignant neoplasm of breast (principal) | CPT/HCPCS: 77063; 77067 ==